=== PATIENT | male | born 1980 | race Caucasian/White ===

== ENCOUNTER 2021-08-14 18:17 | Emergency (ER) | payer OTHER ==
[~2021-08-14] VITALS: Ht 180.3 cm; Wt 111.1 kg
[2021-08-14] MEDS ORDERED: TRAZODONE HCL150 MG PO (18:30)
[2021-08-14] MEDS ORDERED: GEODON60 MG PO (18:31)
[2021-08-14] MEDS ORDERED: LITHIUM CARBON300 MG (18:32)
[2021-08-14] MEDS ORDERED: MOBIC15 MG PO (19:30)
[2021-08-14] MEDS ORDERED: CYCLOBENZAPRINE10 MG PO (19:31)
--- OUTSIDE RECORDS SUMMARY | 2021-08-14 19:40 | XMS ---
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 E.D. VISIT COUNT (12 MO.) 2 [facility] 1 [facility] 2 [facility] 1 [facility] 1 [facility] TOTAL 7 NOTE: Visits indicate total known visits. ED/UCC VISIT TRACKING (12 MO.) 08/14/2021 18:18 [facility] [place] TYPE: Emergency COMPLAINT: - BACK PAIN 08/02/2021 19:16 [facility] [facility] [place] TYPE: Emergency DIAGNOSES: - COUGH CONGESTED HEADACHE - Acute upper respiratory infection, unspecified 05/25/2021 21:15 [facility] [employer] [facility] [place] TYPE: Emergency DIAGNOSES: - Gastro-esophageal reflux disease without esophagitis - VOMITING BLOOD [facility]17[facility]21 [facility] DIAGNOSES: - Other chronic pain - Skin Problem - Lump - Dorsalgia, unspecified - Localized swelling, mass and lump, trunk 01/17/2021 18:04 [facility] TYPE: Emergency DIAGNOSES: - Skin Problem - Skin Complaint;Lump [facility]24[facility]2020 [facility] DIAGNOSES: - dizzy, diarrhea - Diarrhea (Adult) - Dizziness - Diarrhea, unspecified 11/24/2020 03:15 [facility] DIAGNOSES: - Weakness - Alcohol Intoxication INPATIENT VISIT TRACKING (12 MO.) No inpatient visits to display in this time frame [id number]
== END 2021-08-14 19:35 | disposition home or self-care (01) ==
LOC: ED 18:17
DX: M54.16 Radiculopathy, lumbar region (principal); K21.9 Gastro-esophageal reflux disease without esophagitis; Z88.8 Allergy status to other drugs, medicaments and biological substances; Z79.899 Other long term (current) drug therapy
CPT/HCPCS: 96372; 99283; J1885

== ENCOUNTER 2022-06-01 00:52 | Emergency (ER) | payer MEDICARE, OTHER ==
[~2022-06-01] VITALS: Ht 182.9 cm; Wt 109.8 kg
[~2022-06-01 00:52] MED LIST: CYCLOBENZAPRINE10 MG PO; GEODON60 MG PO; LITHIUM CARBON300 MG; MOBIC15 MG PO; TRAZODONE HCL150 MG PO
--- OUTSIDE RECORDS SUMMARY | 2022-06-01 01:01 | XMS ---
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 [facility] VISIT COUNT (12 MO.) [address] TOTAL 9 NOTE: Visits indicate total known visits. ED/UCC VISIT TRACKING (12 MO.) 06/01/2022 00:53 [facility] TYPE: Emergency COMPLAINT: - HIGH BLOOD PRESSURE 05/09/2022 09:01 [facility] [place] TYPE: Emergency DIAGNOSES: - Viral infection, unspecified - COUGH VOMITING 04/08/2022 04:28 [facility] [place] TYPE: Emergency DIAGNOSES: - DIARRHEA - Viral infection, unspecified 02/16/2022 21:37 [facility] [place] TYPE: Emergency COMPLAINT: - heart burn DIAGNOSES: - heart burn 02/14/2022 09:39 [facility] [place] TYPE: Emergency DIAGNOSES: - SPINE - Sciatica, left side 12/03/2021 02:51 [facility] [place] TYPE: Emergency DIAGNOSES: - Muscle spasm of back - back pain 10/23/2021 20:18 [facility] [place] TYPE: Emergency DIAGNOSES: - DRUG REACTION - Cannabis abuse with other cannabis-induced disorder 08/14/2021 18:18 [facility] TYPE: Emergency COMPLAINT: - BACK PAIN DIAGNOSES: - Other fci (current) drug therapy - Allergy status to other drugs, medicaments and biological substances - LOW BACK PAIN, UNSPECIFIED - Radiculopathy, lumbar region - Gastro-esophageal reflux disease without esophagitis - Low back pain, unspecified 08/02/2021 19:16 [facility] [place] TYPE: Emergency DIAGNOSES: - Acute upper respiratory infection, unspecified - COUGH CONGESTED HEADACHE INPATIENT VISIT TRACKING (12 MO.) No inpatient visits to display in this time frame [id number]
[2022-06-01] MEDS ORDERED: NORVASC5 MG PO (04:12)
[2022-06-01] MEDS ORDERED: TRAZODONE HCL100 MG PO (04:15)
[2022-06-01] MEDS ORDERED: DIVALPROEX SOD250 MG PO (04:15)
[2022-06-01] MEDS ORDERED: LITHIUM CARBON300 M1 PO (04:15)
[2022-06-01] MEDS ORDERED: CYCLOBENZAPRINE10 MG PO (04:15)
[2022-06-01] MEDS ORDERED: HYDROXYZINE HCL25 MG PO (04:15)
[2022-06-01] MEDS ORDERED: ZIPRASIDONE HCL60 MG PO (04:16)
[2022-06-01] MEDS ORDERED: TRAZODONE HCL150 MG PO (04:16)
[2022-06-01] MEDS ORDERED: METOPROLOL TART25 MG PO (05:37)
--- NOTE | 2022-06-01 18:32 | EKG ---
[facility] [address] [facility] [address] [place], [place] [address] Signed Normal sinus rhythm Normal ECG No previous ECGs available Confirmed by RACHELE KHOURY MD ([id number]) on 06/01/2022 6:32:40 PM Electronically Signed By: RACHELE KHOURY MD 06/01/221831 PATIENT NAME: HELENA QUEEN Electrocardiogram DATE OF : 80 PHYSICIAN: RACHELE KHOURY MD REPORT #: [id number] REPORT IS CONFIDENTIAL AND NOT TO BE RELEASED WITHOUT AUTHORIZATION
== END 2022-06-01 05:58 | disposition home or self-care (01) ==
LOC: ED 00:52
DX: I10 Essential (primary) hypertension (principal); K21.9 Gastro-esophageal reflux disease without esophagitis; Z91.018 Allergy to other foods; Z79.899 Other long term (current) drug therapy; Z88.8 Allergy status to other drugs, medicaments and biological substances
CPT/HCPCS: 36415; 71045; 80053; 84484; 85025; 93005; 93010; 99284-25

== ENCOUNTER 2023-12-16 05:25 | Emergency (ER) | payer MEDICARE, OTHER ==
[~2023-12-16] VITALS: Ht 182.9 cm; Wt 94.0 kg
[~2023-12-16 05:25] MED LIST changes: +DIVALPROEX SOD250 MG PO; +HYDROXYZINE HCL25 MG PO; +LITHIUM CARBON300 M1 PO; +METOPROLOL TART25 MG PO; +NORVASC5 MG PO; +TRAZODONE HCL100 MG PO; +ZIPRASIDONE HCL60 MG PO
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
[2023-12-16] MEDS ORDERED: OMEPRAZOLE20 MG PO (05:48)
[2023-12-16] MEDS ORDERED: DICLOFENAC SODI25 MG PO (05:49)
[2023-12-16] MEDS ORDERED: SUCRALFATE1 GM PO (05:49)
[2023-12-16] MEDS ORDERED: IBUPROFEN800 MG PO (05:49)
[2023-12-16] MEDS ORDERED: GABAPENTIN300 MG PO (05:49)
[2023-12-16] MEDS ORDERED: HALOPERIDOL5 MG PO (05:49)
[2023-12-16] MEDS ORDERED: KETOROLAC TROMETHAMINE 60 MG/2 ML VIAL IM ONE (06:00)
[2023-12-16] MEDS ORDERED: CYCLOBENZAPRINE HCL 10 MG TAB PO ONE (06:00)
[2023-12-16] MEDS ORDERED: LIDOCAINE HCL 4% 1 EACH PATCH TD ONE (06:15)
[2023-12-16] MEDS ORDERED: LIDODERM1 EACH TOP (06:35)
[2023-12-16 06:47] VITALS: BP 138/96
[2023-12-16] MEDS ORDERED: LIDOCAINE PATCH REMOVAL 1 EA TD SCH (21:00)
== END 2023-12-16 06:49 | disposition home or self-care (01) ==
LOC: ED 05:25
DX: M54.50 Low back pain, unspecified (principal); G89.29 Other chronic pain; I10 Essential (primary) hypertension; K21.9 Gastro-esophageal reflux disease without esophagitis; Z88.8 Allergy status to other drugs, medicaments and biological substances; Z91.010 Allergy to peanuts; Z91.018 Allergy to other foods; Z79.899 Other long term (current) drug therapy
CPT/HCPCS: A9270; J1885

== ENCOUNTER 2024-01-30 20:24 | Emergency (ER) | payer MEDICARE, OTHER ==
[~2024-01-30] VITALS: Ht 182.9 cm; Wt 101.9 kg
[~2024-01-30 20:24] MED LIST changes: +DICLOFENAC SODI25 MG PO; +GABAPENTIN300 MG PO; +HALOPERIDOL5 MG PO; +IBUPROFEN800 MG PO; +LIDODERM1 EACH TOP; +OMEPRAZOLE20 MG PO; +SUCRALFATE1 GM PO
[2024-01-30] MEDS ORDERED: SILDENAFIL20 MG PO (20:44)
[2024-01-30 21:23] VITALS: BP 159/96
== END 2024-01-30 21:33 | disposition left against medical advice (07) ==
LOC: ED 20:24
DX: S00.01XA Abrasion of scalp, initial encounter (principal); W20.8XXA Other cause of strike by thrown, projected or falling object, initial encounter; E11.9 Type 2 diabetes mellitus without complications; K21.9 Gastro-esophageal reflux disease without esophagitis; I10 Essential (primary) hypertension; F25.9 Schizoaffective disorder, unspecified; Z53.29 Procedure and treatment not carried out because of patient's decision for other reasons; Z91.018 Allergy to other foods; Z88.8 Allergy status to other drugs, medicaments and biological substances; Z91.010 Allergy to peanuts; Z79.1 Long term (current) use of non-steroidal anti-inflammatories (NSAID); Z79.899 Other long term (current) drug therapy
CPT/HCPCS: 70450; 70486; 72125; 99283

== ENCOUNTER 2024-02-22 07:49 | Emergency (ER) | payer MEDICARE, OTHER ==
[~2024-02-22] VITALS: Ht 182.9 cm; Wt 101.5 kg
[~2024-02-22 07:49] MED LIST changes: +SILDENAFIL20 MG PO
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
[2024-02-22] MEDS ORDERED: IBUPROFEN 600 MG TAB PO ONE (08:30)
[2024-02-22] MEDS ORDERED: ACETAMINOPHEN 500 MG TAB PO ONE (08:30)
[2024-02-22 08:46] VITALS: BP 140/107
== END 2024-02-22 08:48 | disposition home or self-care (01) ==
LOC: ED 07:49
DX: S06.0X0A Concussion without loss of consciousness, initial encounter (principal); W22.8XXA Striking against or struck by other objects, initial encounter; I10 Essential (primary) hypertension; E11.9 Type 2 diabetes mellitus without complications; K21.9 Gastro-esophageal reflux disease without esophagitis; Z88.8 Allergy status to other drugs, medicaments and biological substances; Z91.010 Allergy to peanuts; Z91.018 Allergy to other foods; Z79.899 Other long term (current) drug therapy
CPT/HCPCS: 70450; 99283-25; A9270

== ENCOUNTER 2025-03-12 13:40 | Emergency (ER) | payer OTHER, MEDICARE ==
[~2025-03-12] VITALS: Ht 182.9 cm; Wt 95.9 kg
[2025-03-12] MEDS ORDERED: BUSPIRONE HCL5 MG PO (15:00)
[2025-03-12] MEDS ORDERED: KETOROLAC TROMETHAMINE 30 MG/ML VIAL IM ONE (17:15)
[2025-03-12 17:16] VITALS: BP 123/103
== END 2025-03-12 17:16 | disposition home or self-care (01) ==
LOC: ED 13:40
DX: M54.50 Low back pain, unspecified (principal); I10 Essential (primary) hypertension; E11.9 Type 2 diabetes mellitus without complications; K21.9 Gastro-esophageal reflux disease without esophagitis; Z91.010 Allergy to peanuts; Z88.8 Allergy status to other drugs, medicaments and biological substances; Z91.018 Allergy to other foods; Z79.899 Other long term (current) drug therapy
CPT/HCPCS: 96372; 99283; J1885

== ENCOUNTER 2025-05-13 06:07 | Emergency (ER) | payer MEDICARE ==
[~2025-05-13] VITALS: Ht 182.9 cm; Wt 95.5 kg
--- OUTSIDE RECORDS SUMMARY | ~2025-05-13 | XMS | Continuity of Care Document ---
Demographics + + + | Address | [address] | | | [place] [address] | + + + | Preferred Language | Unknown | + + + | Marital Status | Never | + + + | Shinto Affiliation | Unknown | + + + | Race | White | + + + | Ethnic Group | Not or | + + + Author + + + | Author | [facility] | + + + | Organization | [facility] | + + + | Address | [address] | | | [place] [address] | + + + | Phone | | + + + Care Team Providers + + + + | Care Weigh And Charge Worker Name | Role | Phone | + + + + Unavailable | Unavailable | + + + + Unavailable | Unavailable | + + + + Allergies and Intolerances + + + + + + | date | description | facility | reaction | severity | + + + + + + | 2025-03-12 | Alprazolam | [facility] - | (no reaction) | Moderate | | 00:00 | | [facility] | | | + + + + + + | 2025-03-12 | Carrots | [facility] - | (no reaction) | Severe | | 00:00 | | [facility] | | | + + + + + + | 2025-03-12 | Aripiprazole | [facility] - | (no reaction) | Mild | | 00:00 | | [facility] | | | + + + + + + | 2025-03-12 | Alprazolam | [facility] - | (no reaction) | Moderate | | 00:00 | | [facility] | | | + + + + + + | 2025-03-12 | Peanuts | [facility] - | (no reaction) | Moderate | | 00:00 | | [facility] | | | + + + + + + | 2025-03-12 | Aripiprazole | [facility] - | (no reaction) | Mild | | 00:00 | | [facility] | | | + + + + + + | 2025-03-12 | Aripiprazole | [facility] - | (no reaction) | Mild | | 00:00 | | [facility] | | | + + + + + + | 2025-03-12 | Carrots | [facility] - | (no reaction) | Severe | | 00:00 | | [facility] | | | + + + + + + | 2025-03-12 | Peanuts | [facility] - | (no reaction) | Moderate | | 00:00 | | [facility] | | | + + + + + + | 2025-03-12 | Alprazolam | [facility] - | (no reaction) | Moderate | | 00:00 | | [facility] | | | + + + + + + Encounters No information. Functional Status No information. Immunizations No information. Medications + + + + | date | description | facility | + + + + | (no date) | IBUPROFEN | [facility] | | | | [facility] | + + + + | (no date) | LITHI[facility] | | | | [facility] | + + + + | (no date) | OMEPRAZOLE | [facility] | | | | [facility] | + + + + | (no date) | GABAPENTIN | [facility] | | | | [facility] | + + + + | (no date) | SUCRALFATE | [facility] | | | | [facility] | + + + + | (no date) | TRAZODONE HCL | [facility] | | | | [facility] | + + + + | (no date) | BUSPIRONE HCL | [facility] | | | | [facility] | + + + + Problems + + + + | date | description | facility | + + + + | 2025-03-12 00:00 | Back pain | [facility] | | | | [facility] | + + + + Procedures No information. Results/Labs No information. Social History + + + + | date | description | facility | + + + + | (no date) | Unknown if ever smoked | [facility] | | | | [facility] | + + + + Vital Signs + + + +---------+ | date | measurement | value | units | + + + +---------+ | 2025-03-12 00:00 | BMI | 28.7 | kg/m2 | + + + +---------+ | 2025-03-12 00:00 | BP_diastolic | 103 | mmHg | + + + +---------+ | 2025-03-12 00:00 | BP_systolic | 123 | mmHg | + + + +---------+ | 2025-03-12 00:00 | heart_rate | 80 | /min | + + + +---------+ | 2025-03-12 00:00 | height_metric | 182.88 | cm | + + + +---------+ | 2025-03-12 00:00 | height_standard | 72 | in | + + + +---------+ | 2025-03-12 00:00 | o2_saturation | 96 | % | + + + +---------+ | 2025-03-12 00:00 | respiration_rate | 14 | /min | + + + +---------+ | 2025-03-12 00:00 | | 97.9 | F | | | temperature_standar | | | | | d | | | + + + +---------+ | 2025-03-12 00:00 | weight_metric | 95.901 | kg | + + + +---------+ | 2025-03-12 00:00 | weight_standard | 211.425 | lb | + + + +---------+"
[~2025-05-13 06:07] MED LIST changes: +BUSPIRONE HCL5 MG PO
--- OUTSIDE RECORDS SUMMARY | 2025-05-13 06:07 | XMS ---
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 Telephone Operator Chief Events No recent Security Events currently on file CRITERIA MET - [facility] - 2 Visits in 30 Days CARE PROVIDERS Miguel Spencer Community Health Worker 02/23/2023-Current PHONE: [phone] -[facility]+ Dentist: Assembler Finger Buffs [facility] Francis PHONE: [phone] -[facility]- Dentist: Assembler Finger Buffs [facility] PHONE: [phone] BELLA KRUGER [facility] Current PHONE: [phone] [place] has no Care Guidelines for this patient. Sonia VISIT COUNT (12 MO.) [address] [facility] ([place]) TOTAL 3 NOTE: Visits indicate total known visits. ED/UCC VISIT TRACKING (12 MO.) 05/13/2025 06:07 [facility] [place] TYPE: Emergency COMPLAINT: - BACK PAIN 05/06/2025 00:28 [facility] Jenifer [facility] ([place]) TYPE: Emergency DIAGNOSES: - Low back pain, unspecified - Other chronic pain - Sciatica, left side - back pain 03/12/2025 13:41 [facility] TYPE: Emergency COMPLAINT: - BACK PAIN DIAGNOSES: - Allergy status to other drugs, medicaments and biological substances - Allergy to other foods - Allergy to peanuts - Essential (primary) hypertension - Gastro-esophageal reflux disease without esophagitis - Low back pain, unspecified - Other manager rn (current) drug therapy - Type 2 diabetes mellitus without complications INPATIENT VISIT TRACKING (12 MO.) No inpatient visits to display in this time frame [id number]
[2025-05-13] MEDS ORDERED: KETOROLAC TROMETHAMINE 60 MG/2 ML VIAL IM ONE (06:15)
[2025-05-13] MEDS ORDERED: CYCLOBENZAPRINE HCL 10 MG TAB PO ONE (06:15)
[2025-05-13] MEDS ORDERED: PREDNISONE20 MG PO (07:05)
[2025-05-13 07:16] VITALS: BP 126/89
== END 2025-05-13 07:10 | disposition home or self-care (01) ==
LOC: ED 06:07
DX: S39.012A Strain of muscle, fascia and tendon of lower back, initial encounter (principal); I10 Essential (primary) hypertension; K21.9 Gastro-esophageal reflux disease without esophagitis; X58.XXXA Exposure to other specified factors, initial encounter; Z79.899 Other long term (current) drug therapy; Z91.018 Allergy to other foods; Z91.010 Allergy to peanuts; Z88.1 Allergy status to other antibiotic agents
CPT/HCPCS: 72080; 96372; 99283; J1885